=== PATIENT | female | born 1930 | race Asian ===

== ENCOUNTER 2018-08-03 10:57 | Inpatient (IN) | payer OTHER ==
[~2018-08-03] VITALS: Ht 149.9 cm; Wt 51.0 kg
[2018-08-03 11:02] VITALS: Ht 149.9 cm; Wt 51.0 kg
[2018-08-03 11:43] LABS: BASOPHIL % 0.6 % (0-2); PLATELET COUNT 339 x10^3mcL (130-400)
[2018-08-03 11:46] LABS: CALCIUM 8.5 mg/dL (8.5-10.1); CARBON DIOXIDE 20.4 mmol/L (21-32); CHLORIDE SERUM 105 mmol/L (98-107); CREATININE SERUM 1.4 mg/dL (0.6-1.0); GLUCOSE SERUM 93 mg/dL (74-106); POTASSIUM SERUM 4.8 mmol/L (3.5-5.1); SODIUM SERUM 137 mmol/L (136-145)
[2018-08-03 11:51] LABS: ALBUMIN 3.5 g/dL (3.4-5.0); ALKALINE PHOSPHATASE 94 U/L (46-116); ALT/SGPT 15 U/L (14-59); AST/SGOT 19 U/L (15-37); BILIRUBIN TOTAL 0.17 mg/dL (0.20-1.00); TOTAL PROTEIN, SERUM 7.7 g/dL (6.4-8.2)
[2018-08-03 12:57] LABS: microscopic required? YES; urine erythrocyte TRACE (NEGATIVE)
[2018-08-03] MEDS ORDERED: ARICEPT5 MG PO (13:00)
[2018-08-03] MEDS ORDERED: AMLODIPINE BESYL5 M2 PO (13:01)
[2018-08-03] MEDS ORDERED: LIPI10 PO (13:02)
[2018-08-03] MEDS ORDERED: COZAAR100 MG PO (13:02)
[2018-08-03 17:01] VITALS: BP 119/52
[2018-08-03 21:20] VITALS: BP 128/41
[2018-08-04 04:48] VITALS: BP 141/38
[2018-08-04 06:09] LABS: BASOPHIL % 0.3 % (0-2); PLATELET COUNT 292 x10^3mcL (130-400)
[2018-08-04 06:19] LABS: CALCIUM 8.3 mg/dL (8.5-10.1); CARBON DIOXIDE 22.2 mmol/L (21-32); CHLORIDE SERUM 110 mmol/L (98-107); CREATININE SERUM 1.4 mg/dL (0.6-1.0); GLUCOSE SERUM 89 mg/dL (74-106); POTASSIUM SERUM 4.3 mmol/L (3.5-5.1); SODIUM SERUM 140 mmol/L (136-145)
[2018-08-04 06:50] LABS: T4(THYROXINE) 6.5 ug/dL (4.7-13.3)
[2018-08-04 06:59] LABS: RED CELL DISTRIBUTION WIDTH 15.1 % (11.5-14.5)
[2018-08-04 09:22] LABS: ERYTHROCYTE SED RATE 47 mm/hr (0-30)
[2018-08-04 10:10] VITALS: BP 125/45
[2018-08-04 10:43] VITALS: BP 123/41
[2018-08-04 14:31] VITALS: BP 128/46
[2018-08-04 14:34] VITALS: BP 128/46
[2018-08-04 14:58] VITALS: BP 128/46
[2018-08-05 08:44] LABS: RAPID PLASMA REAGIN Non Reactive (Non Reactive)
[2018-08-05 09:19] LABS: RHEUMATOID ARTHRITIS FACTOR <10.0 IU/mL (0.0-13.9)
== END 2018-08-04 15:23 | disposition home or self-care (01) | DRG 52 ==
LOC: ED 10:57 → DU 12:49
PROVIDERS: Emergency Medicine; ADMIT Internal Medicine
DX: G93.41 Metabolic encephalopathy (principal); N17.9 Acute kidney failure, unspecified; I69.351 Hemiplegia and hemiparesis following cerebral infarction affecting right dominant side; F03.90 Unspecified dementia, unspecified severity, without behavioral disturbance, psychotic disturbance, mood disturbance, and anxiety; R55 Syncope and collapse; N39.0 Urinary tract infection, site not specified; I12.9 Hypertensive chronic kidney disease with stage 1 through stage 4 chronic kidney disease, or unspecified chronic kidney disease; N18.9 Chronic kidney disease, unspecified; M19.90 Unspecified osteoarthritis, unspecified site; Z68.23 Body mass index [BMI] 23.0-23.9, adult
CPT/HCPCS: 86431; J1956; Q0092